=== PATIENT | female | born 1945 | race Caucasian/White ===

== ENCOUNTER → 2020-07-22 | Outpatient (CLI) | payer OTHER ==
[~2020-07-22] MED LIST: ALBUTEROL2.5 MG/3 M INH; CITALOPRAM HBR40 MG PO; DONEPEZIL HCL5 MG PO; DOXYCYCLINE MO100 MG PO; EDARBI40 MG PO; HYDROCHLOROTHIA25 MG PO; LEVAQUIN500 MG PO; LEVOTHYROXINE25 MCG PO; LIPITOR TAB 2020 MG PO; MEDROL DOSEPAK 24 MG PO; NEURONTIN 400400 MG PO; NORVASC 5 MG TAB5 MG PO; OMEPRAZOLE20 M1 PO; PERCOCET 5/325 T1 EA PO; PREDNISONE 50 M50 MG PO; VENTOLIN HFA 66.7 GM INH; VENTOLIN/PROVE0.5 ML INH
== END ==
LOC: MAMO 10:46
DX: Z12.31 Encounter for screening mammogram for malignant neoplasm of breast (principal)
CPT/HCPCS: 77063; 77067